=== PATIENT | male | born 1975 | race Caucasian/White ===

== ENCOUNTER 2017-05-29 04:09 | Inpatient (IN) | payer MEDICAID ==
[~2017-05-29] VITALS: Ht 172.7 cm; Wt 71.7 kg
[2017-05-29 05:26] LABS: BASOPHIL % 0.3 % (0-2); PLATELET COUNT 220 x10^3mcL (130-400); RED CELL DISTRIBUTION WIDTH 12.9 % (11.5-14.5)
[2017-05-29 05:46] LABS: ALBUMIN 3.8 g/dL (3.4-5.0); ALKALINE PHOSPHATASE 73 U/L (46-116); ALT/SGPT 31 U/L (16-63); AST/SGOT 13 U/L (15-37); BILIRUBIN TOTAL 0.4 mg/dL (0.20-1.00); CALCIUM 9.4 mg/dL (8.5-10.1); CARBON DIOXIDE 30.1 mmol/L (21-32); CHLORIDE SERUM 96 mmol/L (98-107); CREATININE SERUM 0.9 mg/dL (0.7-1.3); GFR1 > 60 mL/min; POTASSIUM SERUM 3.7 mmol/L (3.5-5.1); SODIUM SERUM 131 mmol/L (136-145); TOTAL PROTEIN, SERUM 7.8 g/dL (6.4-8.2)
[2017-05-29 05:55] LABS: GLUCOSE SERUM 479 mg/dL (74-106)
[2017-05-29 07:02] LABS: microscopic required? NO
[2017-05-29 07:38] LABS: MAGNESIUM 2.1 mg/dL (1.8-2.4); PHOSPHOROUS 3.8 mg/dL (2.5-4.9)
[2017-05-29 07:42] LABS: T3 TOTAL 1.04 ng/mL
[2017-05-29 07:44] LABS: CHOLESTEROL/HDL RATIO 2.5
[2017-05-29 07:46] LABS: FREE T4 1.29 ng/dL (0.76-1.46); FREE THYROXINE INDEX 3.7 ug/dL (1.4-4.5)
[2017-05-29 08:07] LABS: UA SPECIFIC GRAVITY <=1.005 (1.005-1.035); urine erythrocyte NEGATIVE (NEGATIVE)
[2017-05-29 08:21] VITALS: BP 104/69
[2017-05-29 08:25] LABS: AMPHETAMINE QUAL UR NONE DETECTED (NEG <=1000)
[2017-05-29 11:06] VITALS: BP 98/51
[2017-05-29 15:16] VITALS: BP 106/68
[2017-05-29 17:11] VITALS: BP 108/71
[2017-05-29 21:53] VITALS: BP 102/58
[2017-05-30 06:21] VITALS: BP 111/63
[2017-05-30 06:31] LABS: BASOPHIL % 0.5 % (0-2); PLATELET COUNT 190 x10^3mcL (130-400); RED CELL DISTRIBUTION WIDTH 12.9 % (11.5-14.5)
[2017-05-30 06:51] LABS: CALCIUM 8.2 mg/dL (8.5-10.1); CARBON DIOXIDE 26.8 mmol/L (21-32); CHLORIDE SERUM 105 mmol/L (98-107); CREATININE SERUM 0.6 mg/dL (0.7-1.3); GFR1 > 60 mL/min; GLUCOSE SERUM 172 mg/dL (74-106); POTASSIUM SERUM 3.7 mmol/L (3.5-5.1); SODIUM SERUM 140 mmol/L (136-145)
[2017-05-30 09:19] VITALS: BP 130/80
[2017-05-30 13:45] VITALS: BP 111/70
[2017-05-30 18:00] VITALS: BP 109/68
[2017-05-30 20:39] VITALS: BP 115/79
[2017-05-31 05:27] VITALS: BP 116/72
[2017-05-31 06:28] LABS: CALCIUM 8.6 mg/dL (8.5-10.1); CARBON DIOXIDE 26.4 mmol/L (21-32); CHLORIDE SERUM 101 mmol/L (98-107); CREATININE SERUM 0.6 mg/dL (0.7-1.3); GFR1 > 60 mL/min; GLUCOSE SERUM 250 mg/dL (74-106); MAGNESIUM 1.5 mg/dL (1.8-2.4); PHOSPHOROUS 3.7 mg/dL (2.5-4.9); SODIUM SERUM 136 mmol/L (136-145)
[2017-05-31 06:35] LABS: BASOPHIL % 0.3 % (0-2); PLATELET COUNT 197 x10^3mcL (130-400)
[2017-05-31] MEDS ORDERED: METFORMIN HCL850 MG PO (09:35)
[2017-05-31] MEDS ORDERED: PHARMASSURE VI500 MG PO (09:42)
[2017-05-31 09:44] VITALS: BP 119/69
[2017-05-31] MEDS ORDERED: THE PO (09:44)
[2017-05-31] MEDS ORDERED: LEVEMIR FLEX100 U/M1 SC (09:55)
[2017-05-31 10:35] VITALS: BP 119/69
[2017-05-31] MEDS ORDERED: RELION HUMUL100 U/M2 SC (12:00)
[2017-05-31] MEDS ORDERED: CLINDAMYCIN HC300 MG PO (12:17)
[2017-05-31] MEDS ORDERED: LEVAQUIN750 MG PO (12:17)
[2017-05-31] MEDS ORDERED: NORCO1 TA2 PO (13:19)
== END 2017-05-31 14:04 | disposition home or self-care (01) | DRG 361 ==
LOC: ED 04:09 → MU 05:17 → DU 05:17 → MU 05-30 09:37
PROVIDERS: Emergency Medicine; ADMIT Family Medicine
PROC: 0HBNXZZ Excision of Left Foot Skin, External Approach (ICD-10-PCS; principal; 2017-05-29)
DX: E11.621 Type 2 diabetes mellitus with foot ulcer (principal); L97.529 Non-pressure chronic ulcer of other part of left foot with unspecified severity; N17.0 Acute kidney failure with tubular necrosis; E87.1 Hypo-osmolality and hyponatremia; E11.42 Type 2 diabetes mellitus with diabetic polyneuropathy; E11.65 Type 2 diabetes mellitus with hyperglycemia; D68.69 Other thrombophilia; K85.90 Acute pancreatitis without necrosis or infection, unspecified; L84 Corns and callosities
CPT/HCPCS: 82962; 83880; 84439; J0696; J1815; J1956; J3475; J3490; J7030; Q0092

== ENCOUNTER 2017-06-14 07:00 | Emergency (ER) | payer SELFPAY ==
[~2017-06-14] VITALS: Ht 170.2 cm; Wt 70.5 kg
[~2017-06-14 07:00] MED LIST: CLINDAMYCIN HC300 MG PO; LEVAQUIN750 MG PO; LEVEMIR FLEX100 U/M1 SC; METFORMIN HCL850 MG PO; NORCO1 TA2 PO; PHARMASSURE VI500 MG PO; RELION HUMUL100 U/M2 SC; THE PO
[2017-06-14 07:36] VITALS: BP 121/74
== END 2017-06-14 07:36 | disposition home or self-care (01) ==
LOC: ED 07:00
DX: M54.6 Pain in thoracic spine (principal); R21 Rash and other nonspecific skin eruption; E11.9 Type 2 diabetes mellitus without complications